=== PATIENT | female | born 1985 | race Caucasian/White ===

== ENCOUNTER 2020-07-27 10:08 | Emergency (ER) | payer OTHER ==
--- NOTE | 2020-07-27 11:06 | XRAY Report ---
PROCEDURE: Shoulder 3 View LT INDICATIONS: trauma TECHNIQUE: 3 views of the shoulder were acquired. COMPARISON: None. FINDINGS: Bones: No fractures or dislocations. No suspicious bony lesions. Visualized ribs appear intact. Soft tissues: No suspicious soft tissue calcifications. IMPRESSION: No trauma found. Normal alignment. No significant degenerative change. Reviewed by: Jerrod Leiva MD on 07/27/2020 10:05 AM [facility] Approved by: Jerrod Leiva MD on 07/27/2020 10:05 AM [facility] Station ID: [id number]
--- NOTE | 2020-07-27 12:05 | ED Physician Documentation ---
PD HPI UPPER EXT INJURY - Stated complaint Stated Complaint: LT ARM PAIN - Chief complaint Chief Complaint: Trauma Ext - History obtained from History obtained from: Patient - Additonal information Additional information: Patient comes emergency department chief complaint of left shoulder pain that started yesterday after attempting to assist a patient and standing up with a gait belt. 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 Patient felt a pop over her anterior shoulder and has had pain ever since. She states the pain is spread down her arm and up through her shoulder blade and neck. She states she has noticed some swelling in her left hand. No numbness or tingling. No other injuries or complaints at this time. Review of Systems Ten Systems: 10 systems reviewed and negative Constitutional: reports: Reviewed and negative Eyes: reports: Reviewed and negative Ears: reports: Reviewed and negative Nose: reports: Reviewed and negative Throat: reports: Reviewed and negative Cardiac: reports: Reviewed and negative Respiratory: reports: Reviewed and negative GI: reports: Reviewed and negative : reports: Reviewed and negative Skin: reports: Reviewed and negative Musculoskeletal: reports: Extremity pain, Joint pain, Extremity swelling Neurologic: reports: Reviewed and negative Psychiatric: reports: Reviewed and negative Endocrine: reports: Reviewed and negative Immunocompromised: reports: Reviewed and negative PD PAST MEDICAL HISTORY - Present Medications Home Medications: Ambulatory Orders Medication Instructions Recorded Confirmed Cyclobenzaprine [Flexeril] 10 mg PO TID PRN #20 tablet 07/27/20 HYDROcod/ACETAM 5/325 [Brewster 5/325] 1 - 2 tablet PO Q6H PRN #14 tablet 07/27/20 - Allergies Allergies/Adverse Reactions: Allergies Allergy/AdvReac Type Severity Reaction Status Date / Time No Known Drug Allergies Allergy Verified 07/27/20 10:24 PD ED PE NORMAL - Vitals Vital signs reviewed: Yes - General General: Alert and oriented X 3, No acute distress - HEENT HEENT: Atraumatic, PERRL, EOMI, Moist mucous membranes - Neck Neck: Supple, no meningeal sign - Cardiac Cardiac: Strong equal pulses - Respiratory Respiratory: No respiratory distress - Derm Derm: Normal color, Warm and dry, No rash - Extremities Extremities: No deformity, Other (Minimal edema of left hand. Tenderness diffusely about shoulder joint including rotator cuff musculature and trapezius distribution. No clavicular tenderness or deformity. No bony deformity at any point throughout the L shoulder.) - Neuro Neuro: Alert and oriented X 3 - Psych Psych: Normal mood, Normal affect Results - Vitals Vitals: Vital Signs - 24 hr 07/27/20 10:22 Temperature 36.0 C L Heart Rate 73 Respiratory 16 Rate Blood Pressure 131/85 H O2 Saturation 98 Oxygen O2 Source Room air PD MEDICAL DECISION MAKING - ED course Complexity details: reviewed results, re-evaluated patient, considered different ial, d/w patient ED course: Patient was worked up with x-ray series of the shoulder, which was unremarkable, other than a small amount of DJD. I discussed with the patient that she is most likely sprained her shoulder, and that she only to follow with her primary care physician to determine whether MRI would be helpful at this point. It is not indicated emergently in the emergency urgency department today. We have discussed symptomatic management at home. She has been given a sling in the ED as well as prescriptions for analgesia and muscle relaxation. The patient is advised that she needs to regularly put her shoulder through range of motion to avoid developing a frozen shoulder. Departure - Departure Disposition: 01 Home, Self Care Clinical Impression: Sprain of shoulder joint Qualifiers: Encounter type: initial encounter Shoulder sprain type: unspecified sprain Laterality: left Qualified Code(s): S43.402A - Unspecified sprain of left shoulder joint, initial encounter Condition: Stable Instructions: ED Sprain Shoulder Prescriptions: Cyclobenzaprine [Flexeril] 10 mg PO TID PRN #20 tablet PRN Reason: Spasms HYDROcod/ACETAM 5/325 [Brewster 5/325] 1 - 2 tablet PO Q6H PRN #14 tablet PRN Reason: Pain Comments: Your shoulder x-ray looks good today. There is no evidence of fracture, dislocation, or separation. You do have a little bit of wear and tear within the joint, but this is unlikely to be primarily responsible for your symptoms. Most likely, you have sprained the shoulder, meaning that you have a tear in the tendons or ligaments associated with the joint. The most helpful test will be MRI, which is not indicated emergently today. You may follow-up with your primary care physician to talk about having this done. In the meantime, you may take the medications prescribed as needed for pain and muscle relaxation. You should also be sure to move your shoulder regularly through range of motion throughout the day, multiple times a day. You may use the sling as needed for comfort, but if you do not reach her shoulder through range of motion, the shoulder may freeze up and you may lose a significant amount of mobility and require intensive physical therapy to get your mobility back. Please call this afternoon to make an appointment with your primary care physician for follow-up. Forms: Activity restrictions
[2020-07-27 12:34] VITALS: BP 128/79
== END 2020-07-27 12:34 | disposition home or self-care (01) ==
LOC: ED 10:08
DX: S43.402A Unspecified sprain of left shoulder joint, initial encounter (principal); X50.0XXA Overexertion from strenuous movement or load, initial encounter; X50.1XXA Overexertion from prolonged static or awkward postures, initial encounter; Y93.F2 Activity, caregiving, lifting
CPT/HCPCS: 99283; 99284

== ENCOUNTER 2020-08-30 12:42 | Emergency (ER) | payer OTHER ==
[2020-08-30] MEDS ORDERED: predniSONE 20 MG TABLET PO STA (13:20)
--- NOTE | 2020-08-30 13:23 | ED Physician Documentation ---
History of Present Illness - Stated complaint Stated Complaint: LT LEG PX/SWELLING/BITE - Chief complaint Chief Complaint: Wound - History obtained from History obtained from: Patient - History of Present Illness Timing: Yesterday Pain level max: 2 Pain level now: 2 - Additonal information Additional information: 35-year-old female presents to the emergency department with an insect bite to the left lower extremity. Started yesterday. States increased swelling and pain today. No drainage. Took Benadryl and Aleve. Denies any possibility of . Nothing makes it better or worse. She reports fever, T-max 99. Review of Systems Constitutional: denies: Fever, Chills GI: denies: Vomiting, Diarrhea Skin: denies: Rash Musculoskeletal: denies: Neck pain, Back pain Neurologic: denies: Headache PD PAST MEDICAL HISTORY - Past Medical History Past Medical History: No - Past Surgical History Past Surgical History: Yes - Present Medications Home Medications: Ambulatory Orders Medication Instructions Recorded Confirmed predniSONE [Deltasone] 40 mg PO DAILY #6 tablet 08/30/20 - Allergies Allergies/Adverse Reactions: Allergies Allergy/AdvReac Type Severity Reaction Status Date / Time No Known Drug Allergies Allergy Verified 08/30/20 12:57 - Social History Does the pt smoke?: Yes Smoking Status: Current every day smoker Does the pt drink ETOH?: No Does the pt have substance abuse?: No - Immunizations Immunizations are current?: Yes PD ED PE NORMAL - Vitals Vital signs reviewed: Yes - General General: Alert and oriented X 3, No acute distress - HEENT HEENT: Moist mucous membranes - Neck Neck: Supple, no meningeal sign - Cardiac Cardiac: RRR - Respiratory Respiratory: No respiratory distress, Clear bilaterally - Derm Derm: Warm and dry - Extremities Extremities: Other (There is a small red area to the left lower extremity, about 3 mm in size. Mild induration. No drainage. Otherwise normal exam of the left lower extremity. Neurovascularly intact) - Neuro Neuro: Alert and oriented X 3 - Psych Psych: Normal mood, Normal affect Results - Vitals Vitals: Vital Signs - 24 hr 08/30/20 12:54 Temperature 36.6 C Heart Rate 70 Respiratory 16 Rate Blood Pressure 149/81 H O2 Saturation 100 Oxygen O2 Source Room air PD MEDICAL DECISION MAKING - ED course Complexity details: considered differential, d/w patient ED course: 35-year-old female presents to the emergency room with what appears to be an insect bite to the left lower extremity. Will place on steroids for local allergic reaction. No evidence of infection. No indication for antibiotics. Afebrile. Well-appearing, nontoxic. We will have her follow-up with her doctor for further care. Prior to discharge the patient did show me small areas of a rash/ulcerations to the bilateral upper extremities that been going on for the past 2 weeks. Unclear etiology. We will have her follow-up with dermatology for this. Patient counseled regarding signs and symptoms for which I believe and urgent re-evaluation would be necessary. Patient with good understanding of and agreement to plan and is comfortable going home at this time This document was made in part using voice recognition software. While efforts are made to proofread this document, sound alike and grammatical errors may occur. Departure - Departure Disposition: 01 Home, Self Care Clinical Impression: Insect bite Qualifiers: Encounter type: initial encounter Site of insect bite: lower leg Laterality: left Qualified Code(s): S80.862A - Insect bite (nonvenomous), left lower leg, initial encounter Condition: Good Instructions: ED Bite Sting Insect Local Allergic React Follow-Up: KERRY BROWN ARNP [Primary Care Provider] - Within 1 week [facility] [Provider Group] Prescriptions: predniSONE [Deltasone] 40 mg PO DAILY #6 tablet Comments: You can use the steroids for swelling. This will help to decrease the pain as well. Follow-up with your doctor for recheck in 3 to 4 days. Return for increasing redness, swelling or drainage from the wound. It does not appear infected at this time.
[2020-08-30 13:30] VITALS: BP 129/87
== END 2020-08-30 13:33 | disposition home or self-care (01) ==
LOC: ED 12:42
DX: T63.481A Toxic effect of venom of other arthropod, accidental (unintentional), initial encounter (principal); M79.89 Other specified soft tissue disorders; S80.862A Insect bite (nonvenomous), left lower leg, initial encounter; F17.200 Nicotine dependence, unspecified, uncomplicated
CPT/HCPCS: 99282; 99284; J7512

== ENCOUNTER 2020-10-17 06:53 | Emergency (ER) | payer OTHER ==
[2020-10-17 07:02] VITALS: BP 147/111
--- NOTE | 2020-10-17 07:07 | ED Physician Documentation ---
PD HPI UPPER EXT INJURY - Stated complaint Stated Complaint: RIGHT WRIST INJ - Chief complaint Chief Complaint: Trauma Ext - History obtained from History obtained from: Patient - History of Present Illness Location: Right, Wrist Type of injury: Twist Where injury occurred: Work Timing - onset: How many days ago (2) Timing - duration: Days (2) Timing - details: Abrupt onset, Still present Worsened by: Moving, Palpating Associated symptoms: No: Weakness, Numbness, Swelling Similar symptoms before: Has not had sx before Recently seen: Not recently seen Review of Systems Constitutional: denies: Fever Nose: denies: Rhinorrhea / runny nose, Congestion Throat: denies: Sore throat Respiratory: denies: Cough Skin: denies: Rash, Abrasion (s), Laceration (s) Neurologic: denies: Focal weakness, Numbness PD PAST MEDICAL HISTORY - Past Medical History Musculoskeletal: None - Past Surgical History Past Surgical History: Yes - Present Medications Home Medications: Ambulatory Orders Medication Instructions Recorded Confirmed No Known Home Medications 10/17/20 10/17/20 - Allergies Allergies/Adverse Reactions: Allergies Allergy/AdvReac Type Severity Reaction Status Date / Time No Known Drug Allergies Allergy Verified 10/17/20 07:02 - Social History Does the pt smoke?: Yes Smoking Status: Current every day smoker Does the pt drink ETOH?: No Does the pt have substance abuse?: No - Immunizations Immunizations are current?: Yes PD ED PE NORMAL - Vitals Vital signs reviewed: Yes - General General: Alert and oriented X 3, Well developed/nourished - Extremities Extremities: Other (right wrist with tenderness dorsal ulnar aspect and over ulnar styolid without deformity. Not tender at snuffbox. Normal sensation in fingers. Pain with wrist movement. ) - Neuro Neuro: Alert and oriented X 3, No motor deficit, No sensory deficit, Normal speech Results - Vitals Vitals: Vital Signs - 24 hr 10/17/20 06:55 Temperature 36.4 C L Heart Rate 77 Respiratory 16 Rate Blood Pressure 147/111 H O2 Saturation 97 Oxygen O2 Source Room air - Rads (name of study) right wrist Radiology: Prelim report reviewed (no fractures), See rad report PD MEDICAL DECISION MAKING - ED course Complexity details: reviewed results, considered differential, d/w patient Departure - Departure Disposition: 01 Home, Self Care Clinical Impression: Right wrist sprain Qualifiers: Encounter type: initial encounter Qualified Code(s): S63.501A - Unspecified sprain of right wrist, initial encounter Condition: Stable Record reviewed to determine appropriate education?: Yes Instructions: ED Sprain Wrist Follow-Up: KERRY BROWN ARNP [Primary Care Provider] - Comments: There are no fractures obviously seen on the x-ray. Presume this is a sprain of the ligaments and muscles. There may be some tearing of some fibers given the swelling and appearance of early bruising. As such this may take a couple of weeks to heal up. Use the wrist splint most of the time for the next couple of weeks. Light use with that wrist. Follow-up with your primary care in about a week to see how much better you are doing with it. Call for an appointment. Continue periodic ice today and tomorrow. Continue with the Aleve/Tylenol. Forms: Activity restrictions Discharge Date/Time: 10/17/20 07:46
--- NOTE | 2020-10-17 07:42 | XRAY Report ---
PROCEDURE: Wrist 3 View RT INDICATIONS: injured R wrist while transferring a pt. TECHNIQUE: 3 views of the wrist were acquired. COMPARISON: None FINDINGS: Bones: No fractures or dislocations. No suspicious bony lesions. Soft tissues: No suspicious soft tissue calcifications. IMPRESSION: No fracture. No osseous lesion. If there are persistent symptoms or continued clinical concern for pa thology, then repeat plain film radiographs (7-10 days) or advanced imaging (CT, MR, bone scan) shoul d be considered for further evaluation. Reviewed by: Grecia Cadena MD, PhD on 10/17/2020 7:41 AM PDT Approved by: Grecia Cadena MD, PhD on 10/17/2020 7:41 AM PDT Station ID: [id number]
== END 2020-10-17 07:46 | disposition home or self-care (01) ==
LOC: ED 06:53
DX: S63.501A Unspecified sprain of right wrist, initial encounter (principal); X50.1XXA Overexertion from prolonged static or awkward postures, initial encounter; Y93.F9 Activity, other caregiving; Y92.10 Unspecified residential institution as the place of occurrence of the external cause; Y99.0 Civilian activity done for income or pay; F17.200 Nicotine dependence, unspecified, uncomplicated
CPT/HCPCS: 1040M; 73110; 99283

== ENCOUNTER 2021-03-06 11:35 | Emergency (ER) | payer OTHER ==
--- NOTE | 2021-03-06 12:38 | XRAY Report ---
PROCEDURE: Chest 2 View X-Ray INDICATIONS: Productive cough TECHNIQUE: 2 view(s) of the chest. COMPARISON: None. FINDINGS: Surgical changes and devices: None. Lungs and pleura: No pleural effusions or pneumothorax. Lungs are clear. Mediastinum: Mediastinal contours are normal. Heart size is normal. Bones and chest wall: No suspicious bony abnormalities. Soft tissues appear unremarkable. IMPRESSION: No acute finding. Reviewed by: Angel Burger MD on 03/06/2021 11:36 AM [facility] Approved by: Angel Burger MD on 03/06/2021 11:36 AM [facility] Station ID: [id number]
--- NOTE | 2021-03-06 14:07 | ED Physician Documentation ---
PD HPI URI - Stated complaint Stated Complaint: SOA - Chief complaint Chief Complaint: Resp - History obtained from History obtained from: Patient - Additional information Additional information: 35-year-old woman has been sick for about 4 days with productive cough with green sputum, shortness of breath, she ran out of her DuoNeb. She has sinus and chest congestion. Seen in urgent care and placed on Augmentin. No COVID test done. 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 Review of Systems Constitutional: denies: Fever, Chills Nose: reports: Rhinorrhea / runny nose, Congestion Respiratory: reports: Dyspnea, Cough PD PAST MEDICAL HISTORY - Past Medical History Musculoskeletal: None - Past Surgical History Past Surgical History: Yes - Present Medications Home Medications: Ambulatory Orders Medication Instructions Recorded Confirmed Ipratropium/Albuterol [Duoneb] 3 ml INH Q6H PRN #30 unit 03/06/21 guaiFENesin/CODEINE [Robitussin AC] 5 - 10 ml PO Q6H PRN #120 ml 03/06/21 predniSONE [Deltasone] 60 mg PO DAILY 5 Days #15 tablet 03/06/21 - Allergies Allergies/Adverse Reactions: Allergies Allergy/AdvReac Type Severity Reaction Status Date / Time No Known Drug Allergies Allergy Verified 03/06/21 12:21 - Social History Does the pt smoke?: Yes Smoking Status: Current every day smoker Does the pt drink ETOH?: No Does the pt have substance abuse?: No - Immunizations Immunizations are current?: Yes PD ED PE NORMAL - Vitals Vital signs reviewed: Yes - General General: Alert and oriented X 3, No acute distress - HEENT HEENT: Pharynx benign - Neck Neck: Supple, no meningeal sign, No bony TTP - Cardiac Cardiac: RRR, No murmur - Respiratory Respiratory: No respiratory distress, Clear bilaterally - Abdomen Abdomen: Non tender - Derm Derm: Normal color, Warm and dry - Extremities Extremities: No edema, No calf tenderness / cord - Neuro Neuro: Alert and oriented X 3, Normal speech Results - Vitals Vitals: Vital Signs - 24 hr 03/06/21 12:14 Temperature 36.1 C L Heart Rate 88 Respiratory 20 Rate Blood Pressure 136/88 H O2 Saturation 100 Oxygen O2 Source Room air PD MEDICAL DECISION MAKING - ED course ED course: 35-year-old woman with what sounds like viral bronchitis, clear chest x-ray. She is already on antibiotics and I will leave it to her or if she wants to continue them or not. She is tested for COVID and symptomatic treatment is prescribed. Departure - Departure Disposition: 01 Home, Self Care Clinical Impression: Viral bronchitis Condition: Good Record reviewed to determine appropriate education?: Yes Instructions: ED Upper Resp Infec Abx Tx Prescriptions: predniSONE [Deltasone] 60 mg PO DAILY 5 Days #15 tablet Ipratropium/Albuterol [Duoneb] 3 ml INH Q6H PRN #30 unit PRN Reason: Wheezing guaiFENesin/CODEINE [Robitussin AC] 5 - 10 ml PO Q6H PRN #120 ml PRN Reason: Cough Forms: Activity restrictions
[2021-03-06 14:15] VITALS: BP 131/86
== END 2021-03-06 14:18 | disposition home or self-care (01) ==
LOC: ED 11:35
DX: J20.8 Acute bronchitis due to other specified organisms (principal); B97.89 Other viral agents as the cause of diseases classified elsewhere; Z20.822 Contact with and (suspected) exposure to COVID-19; F17.200 Nicotine dependence, unspecified, uncomplicated
CPT/HCPCS: 99283; 99284

== ENCOUNTER 2023-03-08 10:08 | Outpatient (CLI) | payer OTHER ==
--- NOTE | 2023-03-08 11:05 | XRAY Report ---
PROCEDURE: Finger(s) RT INDICATIONS: UNSPECIFIED INJURY OF RIGHT FINGER(S) TECHNIQUE: PA hand, 2 views of the small finger acquired. COMPARISON: None. FINDINGS: Bones: No acute fractures or dislocations. No suspicious bony lesions. Soft tissues: No suspicious soft tissue calcifications. IMPRESSION: No acute osseous abnormality. If there is clinical concern or persistent symptoms, additional imaging such as repeat radiographs or advanced imaging (e.g. CT, MRI) may be helpful for further evaluation. Reviewed by: Skip Álvarez MD on 03/08/2023 11:03 AM PST Approved by: Skip Álvarez MD on 03/08/2023 11:03 AM PST Station ID: [id number]
== END 2023-03-08 10:09 | disposition home or self-care (01) ==
LOC: DI.N 10:08
PROVIDERS: ATTEND Specialist
DX: S69.91XA Unspecified injury of right wrist, hand and finger(s), initial encounter (principal)

== ENCOUNTER 2023-05-09 23:24 | Emergency (ER) | payer OTHER ==
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
[2023-05-10 02:45] VITALS: BP 131/87; O2SAT 98
== END 2023-05-10 02:35 | disposition home or self-care (01) ==
LOC: ED 23:24
DX: G56.01 Carpal tunnel syndrome, right upper limb (principal); F17.200 Nicotine dependence, unspecified, uncomplicated
CPT/HCPCS: 99283